=== PATIENT | female | born 1980 | race Caucasian/White ===

== ENCOUNTER 2019-08-06 11:17 | Emergency (ER) | payer BC, SELFPAY ==
[2019-08-06 11:18] VITALS: BP 167/116; PULSE 75; RESP 16; TEMP 36.4; O2SAT 98; BMI 39.5
--- NOTE | 2019-08-06 11:31 | EKG12_ITS ---
Test Reason : HYPERTENSION Blood Pressure : / mmHG Vent. Rate : 077 BPM Atrial Rate : 077 BPM P-R Int : 136 ms QRS Dur : 082 ms QT Int : 402 ms P-R-T Axes : 002 056 022 degrees QTc Int : 454 ms Normal sinus rhythm Nonspecific ST and T wave abnormality Confirmed by LISA MALHOTRA, CLAUDIA ([id number]), medical transcription editor TOAN PIERSON ([id number]) on 08/10/2019 2:20:43 PM Referred By: BIA Confirmed By:CLAUDIA GONZALEZ MD
--- NOTE | 2019-08-06 11:32 | CT_ITS ---
STUDY: CT BRAIN WITHOUT CONTRAST REASON FOR EXAM: Female, 38 years old. PT STATED HEADACHE, HTN RADIATION DOSAGE (If Supplied By Facility): CTDIvol = ( 60.81 ) mGy, DLP = ( 1997.33 ) mGycm TECHNIQUE: Transaxial CT imaging of the brain was performed without administration of intravenous contrast material. Individualized dose optimization techniques were used for this CT. COMPARISON: No relevant priors. FINDINGS: Normal soft tissue structures. Normal calvarium. Normal size ventricles and extra-axial spaces for the patient''s age. Normal white matter tracts of the cerebral hemispheres. Normal basal ganglia and thalami. Normal brainstem. Normal cerebellum. There is no intracranial hemorrhage. There are no findings of an acute ischemic infarction. Normal visualized paranasal sinuses. CT/Brain/Head without Contrast IMPRESSION: Normal unenhanced CT scan of the brain. Electronically Signed: Master Soto MD at 12:47 EDT Tel , Service support ,
--- NOTE | 2019-08-06 11:32 | RAD_ITS ---
STUDY: X-RAY CHEST REASON FOR EXAM: Female, 38 years old. Chest pain, high blood pressure TECHNIQUE: PA and lateral views of the chest. COMPARISON: Comparison is made with prior study dated May 20, 2013. FINDINGS: EKG electrodes are seen. The lungs are clear and expanded. There is no demonstrated pleural abnormality. Normal size heart. Normal mediastinum and chavo. Normal visualized pulmonary arteries. Normal visualized aortic arch and descending thoracic aorta. Normal visualized thoracic spine. Normal visualized ribs, clavicles, and shoulders. There is no demonstrated abnormality of the visualized soft tissue structures of the upper abdomen. RAD/Chest PA and Lateral IMPRESSION: Normal x-ray examination of the chest. Electronically Signed: Javy Bojorquez, at 12:38 EDT , Service support ,
--- NOTE | 2019-08-06 11:39 | ED.DCSUM_ITS ---
History of Present Illness Chief Complaint: Hypertension Narrative: 38-year-old female presents with elevated blood pressure. She has no known history of hypertension but does have a family history of hypertension on her father's side of the family. 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 She felt off yesterday so had her blood pressure checked at work. It was nearly [address] Rooney and was started on Bystolic 10 mg. She took a dose yesterday afternoon and then again this morning. Her blood pressure remained elevated this morning at work and she had a fairly severe frontal headache that started gradually a few hours ago. No confusion. No facial droop or expressive aphasia. No chest pain or shortness of breath. No lower extremity edema. No recent increased caffeine intake or any illicit drug use. Prior similar symptoms: No Past Medical History - Allergies and Home Meds Allergies/Adverse Reactions: Allergies azithromycin Allergy (Verified 08/06/19 11:18) Swelling Primary Care Physician: Beverley Rooney MD [Primary Care Provider] - Prior records reviewed: Yes Past Medical History: None Smoking Status: Never smoker Review of Systems General: Denies: Chills, Fever, Malaise, Sweats Eyes: Denies: Visual changes - bilaterally, Diplopia ENT: Denies: Rhinorrhea, Sore throat Cardiovascular: Denies: Chest pain, Palpitations Respiratory: Denies: Dyspnea, Cough, Dyspnea on exertion Gastrointestinal: Denies: Abdominal pain, Nausea, Vomiting, Diarrhea, Melena, Hematochezia Genitourinary: Denies: Dysuria, Hematuria, Frequency Musculoskeletal: Denies: Back pain, Extremity Pain Skin: Denies: Rash, Wounds Neurological: Reports: Headache. Denies: Weakness, Numbness Physical Exam Vital Signs/Narrative: Vital Signs Temp Pulse Resp BP Pulse Ox 08/06/19 11:18 97.5 F L 75 16 167/116 H 98 General: Well nourished, Well developed, No Acute Distress Head: Normocephalic, Atraumatic Eyes: Perrl, EOMI ENT: Moist mucous membranes, No rhinorrhea Neck: Supple, Nontender Cardiovascular: Regular rate, Regular rhythm, No murmurs Respiratory: No distress, CTA bilaterally, Chest nontender Abdomen: Soft, Nontender, Nondistended, Normal bowel sounds Back: Nontender, Normal Inspection Extremities: Nontender, No edema Skin: Normal color, No rash Neurological: Alert, Oriented x3, Cranial nerves II-XII grossly intact, Normal Strength, Normal Sensation Psychological: Normal affect, Normal Mood Diagnostic/Tx/Re-eval Chest X-Ray - ED: 2 View, Read by Radiologist, Normal, Heart, Lungs, Mediastinum, Bony Structures, No Acute Disease - Rhythm Strip Rhythm Strip: Sinus Rhythm Rate: 77 Ectopy: None - Medical Decision Making CT brain is negative. Chest x-ray is negative. Troponin negative. Labs within normal range. NIH is 0. No evidence of significant endorgan damage. She is asymptomatic on reevaluation. Blood pressure is still 180/100 though. She is on 10 mg of Bystolic currently and has only taken 2 doses. We discussed options and elected to increase that to 20 mg and I will also start her on lisinopril. I attempted to reach her doctor but was unable. She is confident though that she can see her tomorrow or at least speak with her. She will keep track of her blood pressure at home. She will return here if she has any recurrence of symptoms. ED Disposition - Plan for ED Patient: Disposition: Home or Assisted Living Diagnosis: Poorly-controlled hypertension Instructions: ED Hypertension New Begin Treatment Prescriptions: Lisinopril [Prinivil] 10 mg PO DAILY 30 Days #30 tablet Referrals: Beverley Rooney MD [Primary Care Provider] - As soon as possible
[2019-08-06 11:48] VITALS: BP 180/114; PULSE 74; RESP 12; O2SAT 96
[2019-08-06 11:50] VITALS: O2SAT 98
[2019-08-06] MEDS: 0.9% Normal Saline 1,000 ML 1000 ML IV (11:51)
[2019-08-06 12:01] LABS: Absolute Lymphocyte Count 1.39 X10^3/uL (0.83-4.51); Absolute Neutrophil Count 10.3 X10^3/uL (2.0-7.7); Basophil# 0.05 X10^3/uL; Basophil% 0.4 % (0-1); Eosinophil# 0.18 X10^3/uL; Eosinophils% 1.4 % (0-5); Hemoglobin 13.9 g/dL (12.0-15.0); Lymphocyte # 1.39 X10^3/ul (4.0); Lymphocyte % 11.2 % (19-41); Mean Corp Hgb Conc 33.9 g/dL (32-36); Mean Corpuscular Hgb 29.9 pg (27.0-32.0); Mean Corpuscular Volume 88.2 fL (81-99); Mean Platelet Vol. 10.3 fl (6.2-12.0); Monocyte# 0.43 X10^3/uL; Monocyte% 3.5 % (0-10); NRBC Flagged by Analyzer 0 % (0-5); Neutrophil # 10.32 X10^3/uL (2.7-7.7); Neutrophil % 83.1 % (47-70); Platelet Count 287 K/mm3 (150-450); RBC Distribution Width CV 13.4 % (11.6-14.6); RBC Distribution Width SD 41.9 fl (35.1-43.9); Red Blood Count 4.65 M/mm3 (4.2-5.4); White Blood Count 12.4 K/mm3 (4.4-11.0)
[2019-08-06 12:33] LABS: Anion Gap 6 (5-15); BUN 11 mg/dL (7-18); BUN/Creat Ratio 12.7 RATIO (10-20); Calcium,Total 8.7 mg/dL (8.5-10.1); Chloride 108 mmol/L (98-107); Creatinine, Serum 0.86 mg/dL (0.55-1.02); EST Glomerular Filtration Rate 79 mL/min (>60); Est Glom Filt Rate - Afr Amer 95 mL/min (>60); Estimated Creatinine Clearance 91.23 ml/min; Glucose 114 mg/dL (74-106); Potassium 3.6 mmol/L (3.5-5.1); Sodium Level 141 mmol/L (136-145)
[2019-08-06 13:25] VITALS: BP 180/114; PULSE 74; RESP 18; O2SAT 97
[2019-08-06] MEDS: hydrALAZINE 20 MG/ML Vial 10 MG IV (13:48)
[2019-08-06] MEDS: Ondansetron 4 MG/2 ML Vial IV (13:48)
[2019-08-06 15:30] VITALS: BP 160/107
== END 2019-08-06 15:31 | disposition home or self-care (01) ==
PROVIDERS: Emergency Provider Emergency Medicine; PCP Family Medicine
DX: I10 Essential (primary) hypertension (principal)
CPT/HCPCS: 70450; 71046; 80048; 84484; 85025; 93005; 96361; 96374; 96375; 99284; J7030; A4216; J2405

== ENCOUNTER → 2019-09-30 | Outpatient (CLI) | payer BC, SELFPAY ==
[2019-09-30 09:56] VITALS: BMI 37.5
[2019-09-30 12:14] LABS: Anion Gap 8 (5-15); BUN 13 mg/dL (7-18); BUN/Creat Ratio 15.2 RATIO (10-20); Calcium,Total 8.9 mg/dL (8.5-10.1); Chloride 104 mmol/L (98-107); Creatinine, Serum 0.86 mg/dL (0.55-1.02); EST Glomerular Filtration Rate 79 mL/min (>60); Est Glom Filt Rate - Afr Amer 96 mL/min (>60); Glucose 95 mg/dL (74-106); Potassium 3.2 mmol/L (3.5-5.1); Sodium Level 141 mmol/L (136-145)
[2020-06-23 11:32] LABS: Aldosterone, Serum 7.8 ng/dL (0.0-30.0); Renin, Plasma < 0.167 ng/mL/hr (0.167-5.380)
== END | disposition home or self-care (01) ==
LOC: LAB 11:02
PROVIDERS: PCP Family Medicine; Referring Provider Internal Medicine Cardiovascular Disease; Visit Provider Internal Medicine Cardiovascular Disease
DX: I10 Essential (primary) hypertension (principal)
CPT/HCPCS: 36415; 80048; 82088; 84244

== ENCOUNTER → 2019-10-16 12:52 | Outpatient (CLI) | payer BC, SELFPAY ==
[2019-09-30 09:56] VITALS: BMI 37.5
--- NOTE | 2019-10-16 12:54 | ECHOD_ITS ---
Reason For Study: HTN Procedure This was a 2D Doppler, Color Flow transthoracic echocardiogram. Exam performed in department. Left Ventricle Normal LV size. Left ventricular systolic function is normal. The estimated ejection fraction is 55 %. Normal diastology for age. No regional wall motion abnormalities noted. Right Ventricle Normal RV size. Normal systolic function. Atria Normal left atrium. Normal right atrium. Mitral Valve Normal mitral valve. Tricuspid Valve Normal tricuspid valve. Mild tricuspid valve insufficiency. Pulmonary artery systolic pressure is 23 mmHg. Aortic Valve Normal aortic valve. Trisinus/trileaflet aortic valve. Pulmonic Valve Normal pulmonic valve. Great Vessels Normal aortic root. The pulmonary artery is normal size. Normal inferior vena cava. Pericardium/Pleural No pericardial effusion. MMode/2D Measurements & Calculations LVIDd: 4.3 cm IVSd: 1.5 cm LA dimension: 3.4 cm LVIDs: 2.9 cm LVPWd: 1.3 cm FS: 34.2 % LAV(MOD-bp): 57.2 ml LA A4 area: 18.1 cm2 RA A4 area: 17.9 cm2 LAV(MOD-bp) Indexed: 25.9 ml/m2 LAV(MOD-sp2): 54.6 ml LAV(MOD-sp4): 45.8 ml Time Measurements MV dec time: 0.26 sec Doppler Measurements & Calculations MV E max carl: 75.9 cm/sec Lat Peak E' Carl: 12.3 cm/sec Med Peak E' Carl: 12.6 cm/sec MV A max carl: 38.2 cm/sec E/E' lat: 6.2 E/E' med: 6.0 MV E/A: 2.0 MV V2 max: 75.1 cm/sec MV P1/2t max carl: 75.5 cm/sec Ao V2 max: 97.1 cm/sec MV max P.3 mmHg MV P1/2t: 81.3 msec Ao max P.8 mmHg MV V2 mean: 41.3 cm/sec MV dec slope: 272.1 cm/sec2 MV mean P.80 mmHg MVA(P1/2t): 2.7 cm2 MV V2 VTI: 21.5 cm LV V1 max: 79.8 cm/sec PA V2 max: 78.0 cm/sec PI end-d carl: 86.7 cm/sec LV V1 max P.5 mmHg TR max carl: 222.9 cm/sec TR max P.9 mmHg Interpretation Summary Normal LV size. Left ventricular systolic function is normal. The estimated ejection fraction is 55 %. Normal diastology for age. Structurally normal valves. Ordering Physician: Duane Hays Referring Physician: Beverley Rooney M.D. Performed By: Javier Ricardo RCS
--- NOTE | 2019-10-16 13:21 | CT_ITS ---
STUDY: CT ABDOMEN AND PELVIS WITH AND WITHOUT CONTRAST REASON FOR EXAM: Female, 39 years old. PT STATED PERSISTENT ELEVATED BP, 3 PHASE RENAL [place] RADIATION DOSAGE (If Supplied By Facility): CTDIvol = ( 21.5 ) mGy, DLP = ( 1960.15 ) mGycm TECHNIQUE: Transaxial images were obtained from the dome of the diaphragm to the symphysis pubis without oral contrast. IV 100ML ISOVUE 300 was administered. Sagittal and coronal images were reconstructed. Individualized dose optimization techniques were used for this CT. COMPARISON: None. FINDINGS: The visualized lung bases are unremarkable. The visualized portions of the heart are within normal limits. There is decreased attenuation of the liver consistent with steatosis. Normal gallbladder and extrahepatic biliary system. Normal spleen. Normal pancreas. Normal bilateral adrenal glands. Normal right kidney. 3 mm calculus in the lower pole calyx of the left kidney. There is a small hiatal hernia. Normal small intestine. Normal colon. The appendix is visualized and appears normal. Normal abdominal aorta. Normal inferior vena cava. Normal retroperitoneum. Normal urinary bladder. Normal abdominal wall. Disc space narrowing and disc degeneration at the L4-L5 and L5-S1 levels. CT/CT Abd/Pelvis W/WO Contrast IMPRESSION: 3 mm nonobstructive calculus in the lower pole calyx of the left kidney. Fatty infiltration of the liver. Electronically Signed: Javy Bojorquez, at 14:12 EDT , Service support ,
== END ==
PROVIDERS: PCP Family Medicine; Referring Provider Internal Medicine Cardiovascular Disease; Visit Provider Internal Medicine Cardiovascular Disease
DX: I10 Essential (primary) hypertension (principal); I47.1 Supraventricular tachycardia
CPT/HCPCS: 74178; 93306; Q9967

== ENCOUNTER → 2020-02-02 06:07 | Outpatient (CLI) | payer BC, SELFPAY ==
[2019-11-03 16:18] VITALS: BMI 37.7
[2020-02-02 07:04] LABS: Anion Gap 5 (5-15); BUN 12 mg/dL (7-18); BUN/Creat Ratio 12.5 RATIO (10-20); Calcium,Total 8.6 mg/dL (8.5-10.1); Chloride 108 mmol/L (98-107); Creatinine, Serum 0.96 mg/dL (0.55-1.02); EST Glomerular Filtration Rate 69 mL/min (>60); Est Glom Filt Rate - Afr Amer 84 mL/min (>60); Glucose 120 mg/dL (74-106); Potassium 3.7 mmol/L (3.5-5.1); Sodium Level 140 mmol/L (136-145)
== END ==
PROVIDERS: PCP Family Medicine; Referring Provider Internal Medicine Cardiovascular Disease; Visit Provider Internal Medicine Cardiovascular Disease
DX: I10 Essential (primary) hypertension (principal)
CPT/HCPCS: 36415; 80048

== ENCOUNTER → 2023-07-08 | Outpatient (CLI) | payer OTHER, SELFPAY ==
--- NOTE | 2023-07-08 08:08 | ECHOD_ITS ---
Reason For Study: HYPERTENSION Procedure This was a 2D Doppler, Color Flow transthoracic echocardiogram. Exam performed in department. Left Ventricle Normal LV size. Left ventricular systolic function is normal. The estimated ejection fraction is 65 %. Normal diastology for age. No regional wall motion abnormalities noted. Right Ventricle Normal RV size. Normal systolic function. Atria Normal left atrium. Normal right atrium. Mitral Valve Normal mitral valve. Tricuspid Valve Normal tricuspid valve. Mild tricuspid valve insufficiency. Pulmonary artery systolic pressure is 23 mmHg. Aortic Valve Trisinus/trileaflet aortic valve. Pulmonic Valve Normal pulmonic valve. Great Vessels Normal aortic root. The pulmonary artery is normal size. Inferior vena cava collapse with respiration. Pericardium/Pleural No pericardial effusion. MMode/2D Measurements & Calculations LVIDd: 4.4 cm IVSd: 0.93 cm LVOT diam: 2.1 cm LVIDs: 2.7 cm LVPWd: 0.91 cm LVOT area: 3.5 cm2 RVDd: 3.0 cm FS: 39.2 % Ao root diam: 3.1 cm LAV(MOD-bp): 38.1 ml LVAd ap4: 26.2 cm2 LAV(MOD-bp) Indexed: 16.3 ml/m2 LVLd ap4: 7.8 cm LAV(MOD-sp2): 47.0 ml EDV(MOD-sp4): 73.6 ml LAV(MOD-sp4): 29.1 ml EDV(sp4-el): 75.3 ml LVAs ap4: 13.7 cm2 LVLs ap4: 6.3 cm ESV(MOD-sp4): 25.0 ml ESV(sp4-el): 25.0 ml EF(MOD-sp4): 66.0 % EF(sp4-el): 66.7 % LVAd ap2: 31.7 cm2 SV(MOD-sp4): 48.6 ml SV(MOD-sp2): 65.9 ml LVLd ap2: 8.1 cm EDV(MOD-sp2): 101.5 ml EDV(sp2-el): 105.6 ml LVAs ap2: 17.0 cm2 LVLs ap2: 6.7 cm ESV(MOD-sp2): 35.6 ml ESV(sp2-el): 36.5 ml EF(MOD-sp2): 64.9 % SV(sp4-el): 50.2 ml LA dimension(2D): 3.3 cm LA A4 area: 13.2 cm2 RA A4 area: 9.2 cm2 TAPSE: 2.0 cm Time Measurements MV dec time: 0.19 sec Doppler Measurements & Calculations MV E max carl: 77.5 cm/sec Lat Peak E' Carl: 16.4 cm/sec Med Peak E' Carl: 12.1 cm/sec MV A max carl: 43.7 cm/sec E/E' lat: 4.7 E/E' med: 6.4 MV E/A: 1.8 Ao V2 max: 133.0 cm/sec LV V1 max: 90.7 cm/sec MV dec slope: 397.6 cm/sec2 Ao max P.1 mmHg LV V1 max P.3 mmHg Ao V2 mean: 88.8 cm/sec LV V1 mean P.9 mmHg Ao mean P.6 mmHg LV V1 mean: 63.8 cm/sec Ao V2 VTI: 29.4 cm LV V1 VTI: 20.4 cm AV (velocity ratio): 0.69 ANTHONY(I,D): 2.4 cm2 ANTHONY(V,D): 2.4 cm2 SV(LVOT): 70.4 ml PA V2 max: 72.9 cm/sec TR max carl: 227.4 cm/sec PA max PG (full): 0.83 mmHg TR max P.7 mmHg ECHO/Echo Complete Interpretation Summary Normal LV size. Left ventricular systolic function is normal. The estimated ejection fraction is 65 %. Pulmonary artery systolic pressure is 23 mmHg. Normal diastology for age. Structurally normal valves. Ordering Physician: Duane Hays Referring Physician: Beverley Rooney M.D. Performed By: Hetal Owens RDCS
== END | disposition home or self-care (01) ==
LOC: CVS 08:08
PROVIDERS: PCP Family Medicine; Referring Provider Internal Medicine Cardiovascular Disease; Visit Provider Internal Medicine Cardiovascular Disease
DX: I10 Essential (primary) hypertension (principal)
CPT/HCPCS: 93306

== ENCOUNTER 2024-03-24 11:45 | Emergency (ER) | payer OTHER, SELFPAY ==
[2024-03-24 11:46] VITALS: BP 137/90; PULSE 120; RESP 20; TEMP 36.4; O2SAT 99; BMI 43.4
--- NOTE | 2024-03-24 12:17 | EDS_ITS ---
HPI History of Present Illness Chief Complaint: Shortness of Breath Informant: patient and spouse/S.O. Narrative Narrative: 43-year-old female presenting to the emergency room with cough and tachycardia. Patient states over the past couple days she has developed headache sore throat dry cough some mild shortness of breath myalgias and fever. She went saw primary care today where an EKG was performed which showed tachycardia. Patient notes no rashes or diarrhea or vomiting. She notes bilateral ear discomfort. No significant rhinorrhea or sputum. She denies any known lung conditions. She is a non-smoker. [facility] Medical History (Updated 03/24/24 @ 13:[address] Raj Graham DO) Obesity (BMI 30-39.9) Essential hypertension AVNRT (AV latoya re-entry tachycardia) Home Medications ?Medication ?Instructions ?Recorded ?Last Taken ?Type amlodipine 10 mg tablet 10 mg PO DAILY #90 tabs 04/19/23 Unknown Rx spironolactone 25 mg tablet 25 mg PO DAILY #90 tabs 04/19/23 Unknown Rx lisinopril 40 mg tablet 40 mg PO DAILY #90 TABLETS 10/09/23 Unknown Rx Allergy/AdvReac Type Severity Reaction Status Date / Time doxycycline Allergy Intermediate Rash, ears Verified 03/24/24 11:47 burning azithromycin Allergy Swelling Verified 03/24/24 11:47 Family History Mother Cancer Thyroid Hypertension Father Hypertension Hypercholesteremia Grandfather Myocardial infarction, Onset Age: 50 Surgical History Antoinette endometrial ablation. History of right inguinal hernia repair History of tonsillectomy and adenoidectomy History of radiofrequency ablation (RFA) procedure for cardiac arrhythmia (06/19/13) Social History Smoking Status: Never smoker ROS ROS ED Constitutional Constitutional ED: Reports chills and fever(s); Denies weight loss Eyes Eyes: Denies change in vision or diplopia ENT ENT ED: Reports ear pain and sore throat; Denies rhinorrhea Cardiovascular Cardiovascular: Reports racing heartbeat; Denies chest pain, orthopnea or palpitations Respiratory/Chest Respiratory/Chest: Reports cough and dyspnea; Denies orthopnea Gastrointestinal Gastrointestinal: Denies abdominal pain, diarrhea, nausea or vomiting Genitourinary Genitourinary ED: Denies dysuria, hematuria or urinary frequency Musculoskeletal Musculoskeletal: Denies arthralgias or myalgias Integumentary Denies abscess or rash Neurologic Neurologic: Denies headache(s) or weakness Psychiatric Psychiatric: Denies anxiety, depression, suicidal ideation or suicidal thoughts Endocrine Endocrinology: Denies polydipsia, polyphagia or polyuria Allergic/Immunologic Allergic/Immunologic ED: Denies mouth swelling, tongue swelling or urticaria EXAM Physical Exam Const Vital Signs: 03/24/24 11:46 03/24/24 13:42 03/24/24 14:26 Temperature 97.5 F L 99 F Temperature Source Temporal Pulse Rate 120 H 102 H 88 Respiratory Rate 20 H 18 18 Blood Pressure 137/90 H 138/78 H 160/84 H Blood Pressure Mean 105 98 109 Pulse Ox 99 93 97 Oxygen Delivery Method Room Air Room Air Positive well nourished and well developed General Appearance ED: well developed and NAD HEENT Reports normocephalic, head/scalp atraumatic and moist mucous membranes HEENT Narrative: Mild serous otitis is noted but I do not appreciate bulging of the eardrums or area of significant erythema. There is no oropharyngeal erythema. No evidence of postnasal drip. Eyes PERRL and EOMs intact bilaterally Neck no lymphadenopathy, supple and no JVD Resp normal respiratory effort and clear to auscultation bilaterally Cardio regular rate, regular rhythm and no murmurs Rate: tachycardic GI normal to inspection, nondistended, normoactive bowel sounds and non-tender Palpation: soft Back/Spine no CVA tenderness and normal ROM Extremity normal to inspection General Extremety ED: Negative for edema General Extremity: Negative for edema Neuro oriented x3 and CN's II-XII intact bilaterally Sensorium / Orientation: alert Motor Exam: strength 5/5 throughout Psych mental status grossly normal Mood & Affect: Negative for depressed or tearful Skin no rashes or lesions noted and no wounds MDM MDM MDM Narrative Medical decision making narrative: Differential diagnosis includes but not limited to pneumonia viral syndrome viral URI cardiac dysrhythmia electrolyte abnormalities White count 6.2 platelet count 264 hemoglobin 14 BMP showed a glucose of 132. My independent interpretation of the chest x-ray is no acute process. Patient is influenza A positive. EKG is a sinus tachycardia. Heart rate is under 100 feet with rest. She is not requiring supplemental oxygen. We talked about Tamiflu but at this point she is going to be discharged home with more supportive care. Follow-up as needed return if worsening or concerns History & Record Review Discussion w/independent historian: Patient Lab Data Attestation: I reviewed the patient's lab results. Labs: Laboratory Results - last 24 hr 03/24/24 11:56 WBC 6.2 RBC 5.00 Hgb 14.0 Hct 43.5 MCV 87.0 MCH 28.0 MCHC 32.2 RDW Std Deviation 43.1 RDW Coeff of Axel 13.5 Plt Count 264 MPV 10.0 Immature Gran % (Auto) 0.500 Neut % (Auto) 76.8 H Lymph % (Auto) 6.1 L [place] % (Auto) 15.5 H Eos % (Auto) 0.6 Baso % (Auto) 0.5 Absolute Neuts (auto) 4.8 Absolute Lymphs (auto) 0.38 L Nucleated RBC % 0 Sodium 133 L Potassium 3.5 Chloride 104 Carbon Dioxide 23.0 Anion Gap 7 BUN 10 Creatinine 1.00 Estim Creat Clear Calc 105.46 Est GFR (MDRD) Af Amer 79 Est GFR (MDRD) Non-Af 65 BUN/Creatinine Ratio 10.1 Glucose 132 H Calcium 8.8 Radiography Diagnostic Testing: Clinical Impression(s) from Imaging Studies Chest X-Ray 03/24/24 12:30 IMPRESSION: Normal x-ray examination of the chest. Electronically Signed: Javy Bojorquez MD at 12:43 EST , EKG Initial EKG: Attestation: I personally reviewed and interpreted this EKG as follows: Comments: Sinus tachycardia ventricular rate of 117 bpm Discharge Plan Triage Chief Complaint: Shortness of Breath ED Provider: Raj Graham Dx/Rx/DC Orders Clinical Impression: Influenza A Instructions: ED Influenza (Adult) Prescriptions: No Action spironolactone 25 mg tablet 25 mg PO DAILY Qty: 90 3RF amlodipine 10 mg tablet 10 mg PO DAILY Qty: 90 3RF lisinopril 40 mg tablet 40 mg PO DAILY Qty: 90 3RF Primary Care Provider: Beverley Rooney Referrals: Beverley Rooney MD [Primary Care Provider] - As Needed Print Language: Romanian Disposition Disposition: Home, Self Care Discharge Date/Time: 03/24/24 14:28
--- NOTE | 2024-03-24 12:30 | RAD_ITS ---
STUDY: X-RAY CHEST REASON FOR EXAM: Female, 43 years old. Cough TECHNIQUE: PA and lateral views of the chest. COMPARISON: Comparison is made with prior study August 06, 2019. FINDINGS: EKG electrodes are seen. The lungs are clear and expanded. There is no demonstrated pleural abnormality. Normal size heart. Normal mediastinum and chavo. Normal visualized pulmonary arteries. Normal visualized aortic arch and descending thoracic aorta. Normal visualized thoracic spine. Normal visualized ribs, clavicles, and shoulders. There is no demonstrated abnormality of the visualized soft tissue structures of the upper abdomen. RAD/Chest PA and Lateral IMPRESSION: Normal x-ray examination of the chest. Electronically Signed: Javy Bojorquez MD at 12:43 EST ,
[2024-03-24 12:32] LABS: Absolute Lymphocyte Count 0.38 X10^3/uL (0.83-4.51); Absolute Neutrophil Count 4.8 X10^3/uL (2.0-7.7); Basophil# 0.03 X10^3/uL; Basophil% 0.5 % (0-1); Eosinophil# 0.04 X10^3/uL; Eosinophils% 0.6 % (0-5); Hematocrit 43.5 % (37-47); Lymphocyte # 0.38 X10^3/ul (0.83-4.51); Lymphocyte % 6.1 % (19-41); Mean Corp Hgb Conc 32.2 g/dL (32-36); Monocyte# 0.96 X10^3/uL; Monocyte% 15.5 % (0-10); NRBC Flagged by Analyzer 0 % (0-5); Neutrophil # 4.76 X10^3/uL (2.7-7.7); Neutrophil % 76.8 % (47-70); POSITIVE DIFFERENTIAL YES; Platelet Count 264 K/mm3 (150-450); RBC Distribution Width CV 13.5 % (11.6-14.6); RBC Distribution Width SD 43.1 fl (35.1-43.9); White Blood Count 6.2 K/mm3 (4.4-11.0)
[2024-03-24 12:44] LABS: Anion Gap 7 (5-15); BUN 10 mg/dL (7-18); BUN/Creat Ratio 10.1 RATIO (10-20); Calcium,Total 8.8 mg/dL (8.5-10.1); Chloride 104 mmol/L (98-107); EST Glomerular Filtration Rate 65 mL/min (>60); Est Glom Filt Rate - Afr Amer 79 mL/min (>60); Estimated Creatinine Clearance 105.46 ml/min; Glucose 132 mg/dL (74-106); Potassium 3.5 mmol/L (3.5-5.1); Sodium Level 133 mmol/L (136-145)
--- NOTE | 2024-03-24 12:45 | EKG12_ITS ---
Test Reason : CHANGES Blood Pressure : */* mmHG Vent. Rate : 117 BPM Atrial Rate : 117 BPM P-R Int : 168 ms QRS Dur : 78 ms QT Int : 322 ms P-R-T Axes : 36 44 3 degrees QTcB Int : 449 ms Poor data quality, interpretation may be adversely affected Sinus tachycardia Cannot rule out Anterior infarct , age undetermined Abnormal ECG Confirmed by ANA CRISTINA MALHOTRA, PAOLA ([id number]), electronic news gathering editor AVELINA CALHOUN ([id number]) on 03/26/2024 10:44:35 AM Referred By: Confirmed By: PAOLA DE LA PAZ MD
[2024-03-24 13:42] VITALS: BP 138/78; PULSE 102; RESP 18; O2SAT 93
[2024-03-24 14:26] VITALS: BP 160/84; PULSE 88; RESP 18; TEMP 37.2; O2SAT 97
== END 2024-03-24 14:28 | disposition home or self-care (01) ==
PROVIDERS: Emergency Provider Emergency Medicine; PCP Family Medicine; Visit Provider Emergency Medicine
DX: J10.1 Influenza due to other identified influenza virus with other respiratory manifestations (principal)
CPT/HCPCS: 71046; 80048; 85025; 87631; 93005; 99282; A4216